=== PATIENT | male | born 1945 | race Caucasian/White ===

== ENCOUNTER 2019-08-16 11:39 | Emergency (ER) | payer BC, OTHER ==
[~2019-08-16] VITALS: Ht 167.6 cm; Wt 75.6 kg
[2019-08-16 11:40] VITALS: BP 162/108
== END 2019-08-16 12:29 | disposition home or self-care (01) ==
LOC: ED 12:11
DX: S60.940A Unspecified superficial injury of right index finger, initial encounter (principal); W46.1XXA Contact with contaminated hypodermic needle, initial encounter; Y93.89 Activity, other specified; Y92.828 Other wilderness area as the place of occurrence of the external cause; Y99.8 Other external cause status
CPT/HCPCS: 36415; 80074; 87806; 99283; G0475